=== PATIENT | male | born 1985 | race Caucasian/White ===

== ENCOUNTER 2021-02-17 17:38 | Emergency (ER) | payer SELFPAY ==
[2021-02-19 01:03] LABS: SARS-CoV-2 PCR by NAA Not Detected (NotDetected)
== END 2021-02-17 18:55 | disposition home or self-care (01) ==
LOC: MADERS 17:38
DX: L25.9 Unspecified contact dermatitis, unspecified cause (principal); Z20.822 Contact with and (suspected) exposure to COVID-19; F17.210 Nicotine dependence, cigarettes, uncomplicated
CPT/HCPCS: 99283; U0003; U0005